=== PATIENT | female | born 1940 | race Caucasian/White ===

== ENCOUNTER → 2017-07-08 | Outpatient (CLI) | payer MEDICARE, OTHER | END | disposition home or self-care (01) | LOC: PCVCCLINIC 11:04 | DX: I48.2 Chronic atrial fibrillation (principal); R06.02 Shortness of breath; E78.00 Pure hypercholesterolemia, unspecified; I10 Essential (primary) hypertension; I34.9 Nonrheumatic mitral valve disorder, unspecified; R94.31 Abnormal electrocardiogram [ECG] [EKG]; Z79.899 Other long term (current) drug therapy | CPT/HCPCS: 80061; 93005; G0463 ==

== ENCOUNTER → 2017-10-02 | Outpatient (CLI) | payer MEDICARE, OTHER | END | disposition home or self-care (01) | LOC: PCVCCLINIC 13:59 | DX: I48.2 Chronic atrial fibrillation (principal); I10 Essential (primary) hypertension; E78.2 Mixed hyperlipidemia; G47.33 Obstructive sleep apnea (adult) (pediatric); R07.9 Chest pain, unspecified; R06.02 Shortness of breath; Z79.899 Other long term (current) drug therapy; Z88.8 Allergy status to other drugs, medicaments and biological substances | CPT/HCPCS: 93005; G0463 ==

== ENCOUNTER → 2017-10-14 | Outpatient (CLI) | payer OTHER, MEDICARE ==
[~2017-10-14] MED LIST: REGADENOSON 0.4 MG/5 ML DISP.SYRIN. IV
== END | disposition home or self-care (01) ==
LOC: PCVCIMAG 11:34
DX: I08.3 Combined rheumatic disorders of mitral, aortic and tricuspid valves (principal); I48.91 Unspecified atrial fibrillation; I10 Essential (primary) hypertension; G47.33 Obstructive sleep apnea (adult) (pediatric); E78.2 Mixed hyperlipidemia; R07.89 Other chest pain; R06.02 Shortness of breath; Z82.49 Family history of ischemic heart disease and other diseases of the circulatory system; Z79.899 Other long term (current) drug therapy; Z88.0 Allergy status to penicillin
CPT/HCPCS: 78452; 93005; 93017; 93306; A9500; G0463; J2785

== ENCOUNTER → 2017-10-15 | Outpatient (CLI) | payer MEDICARE, OTHER | END | disposition home or self-care (01) | LOC: PCVCCLINIC 13:14 | DX: I48.91 Unspecified atrial fibrillation (principal); I10 Essential (primary) hypertension; G47.33 Obstructive sleep apnea (adult) (pediatric); I36.9 Nonrheumatic tricuspid valve disorder, unspecified; I34.9 Nonrheumatic mitral valve disorder, unspecified; E78.2 Mixed hyperlipidemia; R07.89 Other chest pain; R06.02 Shortness of breath; Z82.49 Family history of ischemic heart disease and other diseases of the circulatory system; Z88.8 Allergy status to other drugs, medicaments and biological substances; Z79.899 Other long term (current) drug therapy | CPT/HCPCS: 93005; G0463 ==

== ENCOUNTER → 2017-10-21 | Outpatient (CLI) | payer MEDICARE, OTHER ==
[~2017-10-21] MED LIST changes: +DIAZEPAM 10 MG TABLET.; +FAMOTIDINE 20 MG/2 ML VIAL; +FUROSEMIDE 40 MG/4 ML VIAL.; +IOHEXOL 350 MG/ML 100 ML VIAL.; +IOHEXOL 350 MG/ML 50 ML VIAL.; +IV NORMAL SALINE 500ML BAG 500 ML; +LIDOCAINE 1% Multi-Dose 50 ML VIAL.; +MIDAZOLAM HCL/PF 2 MG/2 ML VIAL.; -REGADENOSON 0.4 MG/5 ML DISP.SYRIN. IV; +diphenhydrAMINE 50 MG/ML VIAL; +fentaNYL PF VIAL 100 MCG/2 ML VIAL; +hydrALAZINE 20 MG/ML VIAL.; +methylPREDNISolone SOD SUCC PF 125 MG/2 ML VIAL.
== END | disposition home or self-care (01) ==
LOC: PCVCINTER 15:20
DX: I25.10 Atherosclerotic heart disease of native coronary artery without angina pectoris (principal)
CPT/HCPCS: 75625; 93460; 93567; C1751; C1760; C1769; C1894; J0360; J1200; J1644; J1940; J2250; J2930; J3010; J7040; Q9967; S0028

== ENCOUNTER → 2017-10-27 | Outpatient (CLI) | payer MEDICARE, OTHER | END | disposition home or self-care (01) | LOC: PCVCCLINIC 11:14 | DX: I48.91 Unspecified atrial fibrillation (principal); I35.1 Nonrheumatic aortic (valve) insufficiency; I10 Essential (primary) hypertension; E78.00 Pure hypercholesterolemia, unspecified; I34.9 Nonrheumatic mitral valve disorder, unspecified; I36.9 Nonrheumatic tricuspid valve disorder, unspecified; G47.33 Obstructive sleep apnea (adult) (pediatric); R94.31 Abnormal electrocardiogram [ECG] [EKG]; R06.02 Shortness of breath; Z88.8 Allergy status to other drugs, medicaments and biological substances; Z79.899 Other long term (current) drug therapy; Z82.49 Family history of ischemic heart disease and other diseases of the circulatory system | CPT/HCPCS: 93005; G0463 ==

== ENCOUNTER → 2017-12-09 | Outpatient (CLI) | payer MEDICARE, OTHER | END | disposition home or self-care (01) | LOC: PCVCCLINIC 11:36 | DX: I48.91 Unspecified atrial fibrillation (principal); G47.33 Obstructive sleep apnea (adult) (pediatric); I36.9 Nonrheumatic tricuspid valve disorder, unspecified; I34.9 Nonrheumatic mitral valve disorder, unspecified; I35.1 Nonrheumatic aortic (valve) insufficiency; Z82.49 Family history of ischemic heart disease and other diseases of the circulatory system | CPT/HCPCS: 80061; 93005; G0463 ==

== ENCOUNTER → 2017-12-15 | Outpatient (CLI) | payer MEDICARE, OTHER ==
[~2017-12-15] MED LIST changes: +BENZOCAINE ONE 20% MUCOSAL SPRAY.; -DIAZEPAM 10 MG TABLET.; -FAMOTIDINE 20 MG/2 ML VIAL; -FUROSEMIDE 40 MG/4 ML VIAL.; -IOHEXOL 350 MG/ML 100 ML VIAL.; -IOHEXOL 350 MG/ML 50 ML VIAL.; +IV NORMAL SALINE 1000ML BAG 1,000 ML; -IV NORMAL SALINE 500ML BAG 500 ML; -LIDOCAINE 1% Multi-Dose 50 ML VIAL.; -diphenhydrAMINE 50 MG/ML VIAL; -hydrALAZINE 20 MG/ML VIAL.; -methylPREDNISolone SOD SUCC PF 125 MG/2 ML VIAL.
== END | disposition home or self-care (01) ==
LOC: PCVCINTER 09:43
DX: I48.1 Persistent atrial fibrillation (principal); I08.0 Rheumatic disorders of both mitral and aortic valves; I70.0 Atherosclerosis of aorta; G47.33 Obstructive sleep apnea (adult) (pediatric); I10 Essential (primary) hypertension; E78.00 Pure hypercholesterolemia, unspecified; I25.10 Atherosclerotic heart disease of native coronary artery without angina pectoris; Z79.899 Other long term (current) drug therapy; Z82.49 Family history of ischemic heart disease and other diseases of the circulatory system; Z88.8 Allergy status to other drugs, medicaments and biological substances
CPT/HCPCS: 92960; 93005; 93312; 93325; J2250; J3010; J7030

== ENCOUNTER → 2018-07-23 | Outpatient (CLI) | payer OTHER, MEDICARE ==
--- NOTE | 2018-07-23 14:21 | PCVCIMAG ---
APPROVED REPORT Study performed: 07/23/2018 13:01:47 EXAM: Comprehensive 2D, Doppler, and color-flow Echocardiogram Patient Location: Echo lab Room #: 2Status: routine BSA: 1.81 HR: 75 bpmBP: 144/74 mmHg Rhythm: Atrial Fibrillation Other Information Study Quality: Good Indications Atrial Fibrillation Dyspnea LOUISE, 2D Dimensions IVSd: 10.86 (7-11mm)LVOT Diam: 20.45 (18-24mm) LVDd: 42.24 mm PWd: 9.92 (7-11mm)Ascending Ao: 30.28 (22-36mm) LVDs: 26.03 (25-40mm) Left Atrium: 34.77 (27-40mm) Aortic Root: 26.31 mm LV Single Plane 4CH: 51.84 % LV Single Plane 2CH: 59.36 % Biplane EF: 54.6 % Volumes Left Atrial Volume (Systole) Single Plane 4CH: 64.54 mLSingle Plane 2CH: 54.48 mL Biplane LA Volume: 66.00 mLLA ESV Index: 36.00 mL/m2 Aortic Valve AoV Peak Tato.: 1.59 m/s AO Peak Gr.: 13.01 mmHgLVOT Max P.48 mmHg LVOT Max V: 0.93 m/s PIA Vmax: 1.92 cm2 AI Vmax: 4.22 m/s AI Amite: 2.06 m/s2 AI PHT: 600.84 ms Mitral Valve MV E Max Tato.: 1.00 m/s MV PHT: 79.34 ms MVA (PHT): 2.77 cm2 TDI E/Lateral E': 7.14E/Medial E': 12.50 Medial E' Tato.: 0.08 m/s Lateral E' Tato.: 0.14 m/s Pulmonary Valve PV Peak Tato.: 1.03 m/sPV Peak Gr.: 4.23 mmHg Tricuspid Valve TR Peak Tato.: 3.15 m/s TR Peak Gr.: 39.61 mmHg TV Vmax: 0.88 m/sPA Pressure: 47.00 mmHg Left Ventricle The left ventricle is normal size. There is normal LV segmental wall motion. There is normal left ventricular wall thickness. Left ventricular systolic function is normal. The left ventricular ejection fraction is within the normal range. LVEF is 55-60%. This study is not technically sufficient to allow evaluation of the LV diastolic function due to atrial fibrillation. Right Ventricle The right ventricle is normal size. The right ventricular systolic function is normal. Atria The left atrium size is normal. The right atrium size is normal. Aortic Valve Aortic valve is trileaflet. The aortic valve is normal in structure and function. No aortic regurgitation is present. There is no aortic valvular stenosis. Mitral Valve The mitral valve is normal in structure. Mild mitral regurgitation. No evidence of mitral valve stenosis. Tricuspid Valve The tricuspid valve is normal in structure. Moderate to severe tricuspid regurgitation with a PA pressure of 47 mmHg. Moderate pulmonary hypertension. Pulmonic Valve The pulmonary valve is normal in structure. Mild pulmonic regurgitation. Great Vessels The aortic root is normal in size. The ascending aorta is normal in size. Aortic arch is normal in caliber. IVC is normal in size and collapses >50% with inspiration. Pericardium There is no pericardial effusion. There is no pleural effusion. <Conclusion> The left ventricle is normal size. LVEF is 55-60%. This study is not technically sufficient to allow evaluation of the LV diastolic function due to atrial fibrillation. The right ventricle is normal size. The left atrium size is normal. Aortic valve is trileaflet. The aortic valve is normal in structure and function. Mild mitral regurgitation. Moderate to severe tricuspid regurgitation with a PA pressure of 47 mmHg. Moderate pulmonary hypertension. The aortic root is normal in size. There is no pericardial effusion.
== END | disposition home or self-care (01) ==
LOC: PCVCIMAG 12:26
PROVIDERS: ATTEND Internal Medicine Cardiovascular Disease
DX: I08.1 Rheumatic disorders of both mitral and tricuspid valves (principal); I48.91 Unspecified atrial fibrillation; R06.09 Other forms of dyspnea; G47.33 Obstructive sleep apnea (adult) (pediatric); I27.20 Pulmonary hypertension, unspecified
CPT/HCPCS: 93306

== ENCOUNTER → 2019-04-07 | Outpatient (CLI) | payer MEDICARE, OTHER ==
--- NOTE | 2019-04-07 12:15 | PCVCIMAG ---
APPROVED REPORT Laterality: Bilateral Indications Bruit Dizziness and Vertigo Doppler Spectral Velocity Analysis PSV / EDVPSV / EDV ECA (R) 166 / 13 cm/sECA (L) 104 / 9 cm/s dICA (R) 102 / 24 cm/sdICA (L) 99 / 30 cm/s Álvaro (R) 89 / 27 cm/smICA (L) 82 / 22 cm/s pICA (R) 68 / 21 cm/spICA (L) 83 / 25 cm/s Bulb (R) 57 / 13 cm/sBulb (L) 74 / 17 cm/s dCCA (R) 82 / 11 cm/sdCCA (L) 106 / 14 cm/s mCCA (R) 92 / 15 cm/smCCA (L) 112 / 16 cm/s Vert (R) 32 / 8 cm/sVert (L) 141 / 39 cm/s ICA/CCA 0.93 ICA/CCA 1.11 Basic Measurements Blood Pressure: Pulses: Right Left RightLeft Brachial(Sitting) 142/[id number]/70mmHgTemporal Findings The right carotid bulb has moderate plaque. The right proximal internal carotid artery shows <40% stenosis. The right common carotid artery shows <40% stenosis. The right external carotid artery shows >50% stenosis. The left carotid bulb has mild plaque. The left proximal internal carotid artery shows no significant stenosis. The left common carotid artery shows no significant stenosis. The left external carotid artery shows no significant stenosis. Conclusion 1. Right common and internal carotid artery stenoses (<40%). 2. Left internal carotid artery plaquing without significant stenosis. 3. Antegrade vertebral flow.
== END | disposition home or self-care (01) ==
LOC: PCVCIMAG 10:24
PROVIDERS: ATTEND Internal Medicine Cardiovascular Disease
DX: I65.23 Occlusion and stenosis of bilateral carotid arteries (principal); I48.91 Unspecified atrial fibrillation; I25.10 Atherosclerotic heart disease of native coronary artery without angina pectoris; R07.89 Other chest pain; R06.02 Shortness of breath; I08.0 Rheumatic disorders of both mitral and aortic valves; I10 Essential (primary) hypertension; E78.00 Pure hypercholesterolemia, unspecified; G47.33 Obstructive sleep apnea (adult) (pediatric); R09.89 Other specified symptoms and signs involving the circulatory and respiratory systems; E78.5 Hyperlipidemia, unspecified; Z79.899 Other long term (current) drug therapy
CPT/HCPCS: 36415; 80061; 93005; 93880; G0463